=== PATIENT | male | born 1945 | race Caucasian/White ===

== ENCOUNTER 2018-06-10 13:20 | Day surgery (SDC) | payer OTHER, SELFPAY ==
[2018-06-10 13:34] VITALS: BP 122/73; PULSE 59; RESP 15; TEMP 37.3; O2SAT 99; BMI 22.1
[2018-06-10] MEDS: SODIUM CHLORIDE 0.9% 1,000 ML 200 ML IV (13:53)
--- NOTE | 2018-06-10 14:12 | PM.OP.1 ---
Operative Date/Time/Diagnoses Date of procedure: 06/10/18 Time of procedure: 14:12 Pre-op diagnosis: Personal history of colon polyps Surveillance colonoscopy Post-op diagnosis: same Procedure & Clinicians Procedure: Colonoscopy to the cecum Same procedure as scheduled: Yes Indications: Last colonoscopy 2012 Surgeon: Caitlyn Edouard Click Yes if Unassisted: Yes Anesthesia Type: Sedation (Versed 6 mg; fentanyl 200 mcg) Operative Notes Findings: 1. Excellent prep 2. No polyps or mass lesions 3. No AV malformations 4. Diverticulosis limited to the sigmoid region. Primarily small pockets without evidence of false passages, inflammation, or bleeding. 5. Mildly tortuous sigmoid and transverse colons 6. Grade 1-2 internal hemorrhoids without evidence of recent hemorrhage 7. One excoriated external hemorrhoid with stigmata of recent bleeding. Closure Type: not applicable Specimen(s): none sent Estimated Blood Loss (mL): 0 Procedure in detail: After obtaining informed consent, the patient was brought to the GI suite and placed in the left lateral decubitus position on the examination table. After placement of appropriate monitors, the patient was given incremental doses of Versed and Fentanyl until an appropriate level of sedation was achieved. A time out was held per [facility] protocol. A digital rectal examination was performed and did not reveal any masses or obstructing lesions. The colonoscope was gently passed into the patient's anus and the entire colon navigated to the level of the cecum with mild difficulty due to colon tortuosity. Once in the cecum, the scope was withdrawn being sure to go before and beyond all mucosal folds and prominences and get an excellent examination. The findings are noted above. At the level of the rectal vault, the scope was retroflexed and the internal anal canal was examined. The scope was straightened and air aspirated from the colon. The instrument was removed from the patient's body and the procedure was concluded. The patient was allowed to awaken from sedation without difficulty and taken to the post-anesthesia care unit in good condition. Total sedation time was 19 min Total withdrawal time was 8 min 14 sec Complications: none Condition: stable Disposition: PACU Plan for aftercare: 1. Discharge to home 2. Plan for next colonoscopy in 5 years or as clinically indicated
--- NOTE | 2018-06-10 14:13 | PM.HP.1 ---
History of Present Illness Date Patient Seen: 06/10/18 Time Patient Seen: 14:13 Chief complaint: colonoscopy [id number] Narrative: Very pleasant 73-year-old gentleman who is remarkably healthy. He presents today for a surveillance colonoscopy. He reports that his last colonoscopy was in 2012 and at that time he did have several small benign polyps removed. He reports that he and his are very active and he very balanced diet. He denies any problems or symptoms related to the function of his GI tract. He reports that he needs a colonoscopy as part of the Health maintenance program. Patient History Medical History Colon polyps (Resolved ~2012) Surgical History History of tonsillectomy Family & Social History Family History: Reviewed 06/10/18 by Caitlyn Edouard MD Social History: household members spouse Tobacco & Substance use: Smoking Status Former smoker alcohol intake never Meds Home Medications Medication Instructions Recorded Confirmed Type pneumoc 13-son conj-dip cr(PF) 0.5 ml IM X1 #1 ea 07/19/16 02/27/18 Rx [Prevnar 13 (PF)] Allergies Allergy/AdvReac Type Severity Reaction Status Date / Time No Known Drug Allergies Allergy Verified 06/10/18 13:34 Review of Systems Review of Systems All systems reviewed & are unremarkable except as noted in HPI and below Exam Vital Signs (past 8 hours): - 06/10/18 13:34 Temperature 99.2 F Pulse Rate 59 L Respiratory Rate 15 Blood Pressure 122/73 Pulse Oximetry 99 Oxygen Delivery Method Room Air Narrative Exam Narrative: Healthy-appearing well-nourished well-developed gentleman in no distress. He appears much younger than his stated age. HEENT: Normocephalic and atraumatic, pupils equal round reactive to light accommodation with anicteric sclera Lungs: Clear bilaterally Heart: Regular rate and rhythm Abdomen: Soft, nontender, active bowel sounds Extremities: Warm and well perfused without edema or evidence of ischemia. Assessment & Plan Plan: Assessment/Plan Narrative: Remarkably healthy 73-year-old gentleman here for a surveillance colonoscopy. He has a personal history of colon polyps. We discussed risks and benefits of the procedure and the patient expressed a desire to complete it today.
[2018-06-10] MEDS: MIDAZOLAM 5 MG/5 ML VIAL IV (14:41)
[2018-06-10] MEDS: fentaNYL 250 MCG/5 ML INJ IV (14:41)
[2018-06-10 14:50] VITALS: BP 84/53; PULSE 55; RESP 10; TEMP 37; O2SAT 96
[2018-06-10 14:55] VITALS: BP 89/54; PULSE 55; RESP 10; O2SAT 96
--- NOTE | 2018-06-10 14:59 | SUR.PHASEI ---
OPERATIVE REPORT GIVEN TO PATIENT UPON DISCHARGE PER DR. FAJARDO.
[2018-06-10 15:00] VITALS: BP 82/52; PULSE 53; RESP 9; O2SAT 96
[2018-06-10 15:09] VITALS: BP 94/55; PULSE 53; RESP 12; TEMP 36.6; O2SAT 98
== END 2018-06-10 15:19 | disposition home or self-care (01) ==
PROVIDERS: PCP Physician Assistant; Visit Provider Surgery
PROC: 0DJD8ZZ Inspection of Lower Intestinal Tract, Via Natural or Artificial Opening Endoscopic (ICD-10-PCS; CPT 45378; principal; 2018-06-10 14:00)
DX: Z86.010 Personal history of colon polyps (principal); K57.30 Diverticulosis of large intestine without perforation or abscess without bleeding; K64.1 Second degree hemorrhoids; K64.4 Residual hemorrhoidal skin tags; Z87.891 Personal history of nicotine dependence
CPT/HCPCS: G0105; 99152; J2250; J3010

== ENCOUNTER → 2019-03-24 09:13 | Outpatient (CLI) | payer OTHER, SELFPAY ==
[2019-03-24 10:27] LABS: Cholesterol 208 mg/dL (140-199); HDL Cholesterol 69 mg/dL (40-60); LDL Cholesterol Calculated 125 mg/dL (<100); Triglycerides 70 mg/dL (35-150)
== END ==
PROVIDERS: PCP Physician Assistant; Visit Provider Physician Assistant
DX: E78.5 Hyperlipidemia, unspecified (principal)
CPT/HCPCS: 36415; 80061

== ENCOUNTER → 2019-04-01 10:52 | Outpatient (CLI) | payer OTHER, SELFPAY ==
[2019-04-01 12:19] LABS: Prostate Specific Antigen Scrn 0.889 ng/mL (0.1-4.0)
== END ==
PROVIDERS: PCP Physician Assistant; Visit Provider Physician Assistant
DX: Z12.5 Encounter for screening for malignant neoplasm of prostate (principal)
CPT/HCPCS: 36415; G0103